=== PATIENT | female | born 1970 | race Caucasian/White ===

== ENCOUNTER 2018-03-10 11:02 | Emergency (ER) | payer SELFPAY ==
[~2018-03-10] VITALS: Ht 157.5 cm; Wt 72.6 kg
--- NOTE | 2018-03-10 11:02 | NUR ---
PT [facility] FOR PREBOOK
--- NOTE | 2018-03-10 11:02 | NUR ---
BROUGHT IN BY [facility] MAYEN FOR PREBOOK. 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
--- NOTE | 2018-03-10 11:11 | NUR ---
Andrea cedillo in ED - 03/10/18 at 1114 by [facility] PT AMBULATES TO BED 6
[2018-03-10 11:14] VITALS: BP 159/92
[2018-03-10] MEDS ORDERED: NEOMYCIN/POLYMYXIN/BACITRACIN 0.9 GM/1 PKT TP ONE (11:20)
[2018-03-10] MEDS ORDERED: KETOROLAC 60 MG/2 ML VIAL IM ONE (11:20)
--- NOTE | 2018-03-10 11:46 | NUR ---
PATIENT REFUSING MEDS. AND TREATMENTS. EDY MADE AWARE AND ERIKA MAYEN AWARE
--- NOTE | 2018-03-10 11:47 | NUR ---
PATIENT REFUSED WOUND CARE RT. KNEE. EDY/ERIKA MAYEN AWARE
[2018-03-10 12:04] VITALS: BP 156/96
--- NOTE | 2018-03-10 12:04 | NUR ---
Patient discharged with v/s stable. Written and verbal after care instructions given and explained. Patient verbalized understanding. Police with in custody. All questions addressed prior to discharge. Advised to follow up with PMD.
== END 2018-03-10 12:04 | disposition home or self-care (01) ==
LOC: MED 11:02
DX: S80.211A Abrasion, right knee, initial encounter (principal); X58.XXXA Exposure to other specified factors, initial encounter; Y93.89 Activity, other specified; Y92.89 Other specified places as the place of occurrence of the external cause; Y99.8 Other external cause status
CPT/HCPCS: 90715; 99283; J1885